=== PATIENT | female | born 1950 | race Caucasian/White ===

== ENCOUNTER → 2016-12-21 | Outpatient (CLI) | payer OTHER, MEDICARE | LOC: MOB LAB 14:34 | PROVIDERS: ATTEND Physician Assistant | DX: R59.1 Generalized enlarged lymph nodes (principal) | CPT/HCPCS: 87880; 99213; G0463 ==

== ENCOUNTER → 2016-12-24 | Outpatient (CLI) | payer OTHER, MEDICARE | LOC: MMPC 09:00 | PROVIDERS: ATTEND Physician Assistant Medical | DX: R59.1 Generalized enlarged lymph nodes (principal) | CPT/HCPCS: 99213; G0463 ==

== ENCOUNTER → 2016-12-28 | Outpatient (CLI) | payer OTHER, MEDICARE ==
[2016-12-28 12:46] LABS: BASOPHILS # (AUTO) 0.03 10*3/UL; BASOPHILS % (AUTO) 0.3 % (0-1); EOSINOPHILS # (AUTO) 0.16 10*3/UL; EOSINOPHILS % (AUTO) 1.5 % (0-8); HEMATOCRIT 42.4 % (37.0-47.0); HEMOGLOBIN 14.1 g/dL (12.0-16.0); LYMPHOCYTES # (AUTO) 2.46 10*3/uL; MEAN CORPUSCULAR HEMOGLOBIN 29.4 PG (27-31); MEAN CORPUSCULAR HGB CONC 33.3 g/dL (33-37); MEAN CORPUSCULAR VOLUME 88.5 FL (81-99); MEAN PLATELET VOLUME 10.5 FL (7.4-12.2); MONOCYTES # (AUTO) 0.71 10*3/UL (0.3-0.8); MONOCYTES % (AUTO) 6.8 % (5-15); NEUTROPHILS # (AUTO) 7.13 10*3/UL; NEUTROPHILS % (AUTO) 67.9 % (50-80); RED BLOOD COUNT 4.79 10^6/uL (4.20-5.40)
[2016-12-28 12:49] LABS: PLATELET MORPHOLOGY COMMENT NORMAL MORPHOLOGY (NORM); RBC MORPHOLOGY COMMENT NORMAL MORPHOLOGY (NORM); WBC MORPHOLOGY COMMENT NORMAL MORPHOLOGY (NORM)
--- NOTE | 2016-12-28 13:11 | DI ---
CT SCAN OF THE NECK WITHOUT IV CONTRAST, 12/28/2016 12:24 PM : Clinical History: Neck abscess. Previous Exam: None at this facility. Scans are obtained from the angle of Med to bridge of the nose without IV contrast. Sagittal and co samia images are generated. The cervical vertebral bodies are of normal height and size. There is disc space narrowing at C6-7 an d C7-T1. The right side of the neck is normal and no adenopathy is identified. On the left side, the inferior portion of the left parotid gland and the posterior belly of the digastric muscle show infla mmatory /infiltrative change. The posterior belly of the digastric muscle is probably 5-6 times alexandra l size. Without IV contrast, it is not possible to identify a definite abscess versus induration of t hat muscle. There is some inflammatory/infiltrative change associated with the sternocleidomastoid mu scle in proximity to the digastric muscle. The thyroid gland, the submandibular glands, and the parot id glands are normal. READIN. There is marked increase in size of the posterior belly of the digastric muscle on the left side with inflammatory/infiltrative change involving the inferomedial aspect of the left parotid gland and the contiguous portions of the sternocleidomastoid muscle. No pathologic adenopathy is present. Unfo rtunately, without IV contrast, it is not possible to definitely identify an abscess within the poste rior belly of the digastric muscle. 2. Followup either with a CT scan of the neck with IV contrast, or ultrasound of the neck is recomme nded to determine whether there is fluid in the posterior belly of the digastric muscle.
[2016-12-28 13:15] LABS: CALCIUM 9.9 mg/dL (8.7-10.7); SERUM ALBUMIN 4.4 g/dL (3.5-4.8)
== END ==
LOC: RAD 11:47 → MOB LAB 11:47
PROVIDERS: ATTEND Family Medicine
DX: L02.11 Cutaneous abscess of neck (principal)
CPT/HCPCS: 36415; 70490; 80053; 85025; 99213

== ENCOUNTER → 2017-01-25 | Outpatient (CLI) | payer OTHER, MEDICARE | LOC: MMPC 10:00 | PROVIDERS: ATTEND Podiatrist Foot & Ankle Surgery | DX: M79.675 Pain in left toe(s) (principal); L60.3 Nail dystrophy; M21.6X2 Other acquired deformities of left foot | CPT/HCPCS: 11755 ×2; 99202; G0463 ==

== ENCOUNTER → 2017-02-09 | Outpatient (CLI) | payer OTHER, MEDICARE | LOC: MMPC 10:00 | PROVIDERS: ATTEND Podiatrist Foot & Ankle Surgery | DX: M79.675 Pain in left toe(s) (principal); L60.3 Nail dystrophy | CPT/HCPCS: 99212; G0463 ==

== ENCOUNTER → 2017-04-12 | Outpatient (CLI) | payer OTHER, MEDICARE ==
[2017-04-12 08:06] LABS: CALCIUM 9.4 mg/dL (8.7-10.7); CHOL/HDL RATIO 4.17 RATIO (0-4.0); LDL CHOLESTEROL,CALCULATED 137.2 mg/dL; SERUM ALBUMIN 4.1 g/dL (3.5-4.8)
[2017-04-12 08:09] LABS: HEMOGLOBIN A1C 6.44 % (4.2-6.0)
[2017-04-12 08:35] LABS: FREE T4 (FREE THYROXINE) 1.26 ng/dL (0.93-1.71)
== END ==
LOC: LAB 07:30
PROVIDERS: ATTEND Family Medicine
DX: E03.9 Hypothyroidism, unspecified (principal); E78.5 Hyperlipidemia, unspecified; E88.81 Metabolic syndrome and other insulin resistance; I12.9 Hypertensive chronic kidney disease with stage 1 through stage 4 chronic kidney disease, or unspecified chronic kidney disease; N18.9 Chronic kidney disease, unspecified; Z83.3 Family history of diabetes mellitus
CPT/HCPCS: 36415; 80053; 80061; 82306; 83036; 84439; 84443

== ENCOUNTER 2018-07-10 05:47 | Inpatient (IN) ==
--- NOTE | 2018-06-21 09:01 | EKG ---
[address] [address] Measurements Intervals [place] Rate: 65 P: 39 IA: 157 QRS: -49 QRSD: 100 T: 49 QT: 349 QTc: 360 Interpretive Statements SINUS RHYTHM LEFT ANTERIOR FASCICULAR BLOCK [QRS AXIS <= -45, QR IN I, RS IN II] No previous ECG available for comparison Electronically Signed On 06-21-18 11:15:57 MDT by Jordan Cottrell [email or web address]
[2018-07-10] MEDS ORDERED: Lactated Ringers 1,000 ML PRIMARY IV ONE (05:57)
[2018-07-10] MEDS ORDERED: LIDOCAINE W/ SODIUM BICARB 0.5 ML SYR ONE (05:57)
[2018-07-10] MEDS ORDERED: Clindamycin 900mg (Premix) 900 MG/50 ML BAG IV ONE ×2 (05:57→06:00)
[2018-07-10] MEDS ORDERED: Lactated Ringers 1,000 ML PRIMARY IV SCH ×2 (06:00→10:30)
[2018-07-10] MEDS ORDERED: Nasal Sanitizer POPSWAB ampule 3 AMP (Nozin) PREOP DOSE ENOS SCH (06:00)
[2018-07-10] MEDS ORDERED: LIDOCAINE W/ SODIUM BICARB 0.5 ML SYR SUBD ONE (06:00)
[2018-07-10] MEDS ORDERED: KETAMINE 100 MG/1 ML - 5 ML ONE (06:46)
[2018-07-10] MEDS ORDERED: MIDAZOLAM 5 MG/1 ML ONE (06:46)
[2018-07-10] MEDS ORDERED: fentaNYL Inj 250 MCG/5 ML VIAL ONE (06:46)
[2018-07-10] MEDS ORDERED: Sodium Chloride 0.9% vial 20 ML ONE (06:48)
[2018-07-10] MEDS ORDERED: LIDOCAINE MPF 2% - 5 ML (20 MG/1 ML) ONE (06:48)
[2018-07-10] MEDS ORDERED: VECURONIUM BROMIDE 10 MG VIAL ONE (06:48)
[2018-07-10] MEDS ORDERED: PROPOFOL 10 MG/1 ML (200 MG/20 ML) VIAL IV ONE (06:49)
[2018-07-10 06:53] LABS: BILIRUBIN,URINE NEGATIVE (NEG); CLARITY,URINE CLEAR (CLEAR); COLOR,URINE YELLOW (Y); GLUCOSE, URINE (UA) NEGATIVE (NEG); OCCULT BLOOD,URINE Trace-intact (NEG); PROTEIN,URINE NEGATIVE (NEG); UROBILINOGEN,URINE 0.2 EU/dL (0.2)
[2018-07-10] MEDS ORDERED: BACITRACIN 50,000 UNIT VIAL IRRIG ONE (06:53)
[2018-07-10] MEDS ORDERED: Sodium Chloride 0.9% vial 40 ML ONE (06:53)
[2018-07-10] MEDS ORDERED: BUPivacaine Liposome/PF (Exparel) Inj 20ml vial INFIL ONE (06:54)
[2018-07-10 07:03] LABS: BACTERIA,URINE FEW; RBC,URINE 0 /hpf; SQUAMOUS EPITHELIAL CELL,UR MODERATE; URINE SAMPLE TYPE CLEAN CATCH URINE; WBC,URINE 0
[2018-07-10] MEDS ORDERED: Acetaminophen 1000mg Inj 1,000 MG/100 ML VIAL IV ONE (07:03)
[2018-07-10] MEDS ORDERED: BUPIVACAINE 0.5% W/EPI MPF -30 ML VIAL IV ONE (07:03)
[2018-07-10] MEDS ORDERED: DEXAMETHASONE PF 10 MG/1 ML VIAL ONE (07:03)
[2018-07-10] MEDS ORDERED: Ropivacaine 0.2% VIAL 20 ML ONE (07:03)
[2018-07-10] MEDS ORDERED: Ketorolac Inj 30 MG, Morphine Inj (Ortho Cocktail) 5 MG, BUPivacaine Inj 0.25% PF 150 MG SPLASH ONE ×3 (07:30)
[2018-07-10] MEDS ORDERED: TRANEXAMIC ACID 1,000 MG / 10 ML VIAL ONE (08:00)
--- NOTE | 2018-07-10 08:55 | CRNA.PROCE ---
Nerve Block Documentation - - Safety Measures: Time Out Taken, Site Verified - - Type of Nerve Block Used: Right Adductor Canal Nerve Block (Analgesia block for pain) Position for Nerve Block: Supine Moniters Used During Block: EKG, SPO2, NIBP Oxygen Supplemented: Yes Sedation Used - Enter Amount in Comment Field [ANES.SEDAT]: Midazolam (mg): Yes (2.5), Fentanyl (mcg): Yes (125) Draped: No Technique: Ultrasound Nerve Block Needle Used: EchoBright 100 mm Local Anesthetic - Enter Amt in Comment Field [ANES.LOCNB]: 0.5 % Bupivicaine with Epinephrine 1:200,000 (mL): Yes (20 ml), 0.2 % Ropivacaine (mL): Yes (12 ml ) Additives to Nerve Blocks: Dexamethasone (mg): Yes (10 ) - - PreOp Block : Time In: 07:13 PreOp Block : Time Out: 07:34 Anesthesia Time - Other Weight: 136.078 kg Height: 5 ft 7 in Body Mass Index (BMI): 47.0
--- NOTE | 2018-07-10 08:57 | CRNA.PROGR ---
Anesthesia Time - Procedure/Recovery Time Start Date: 07/10/18 End Date: 07/10/18 Anesthesia : Time In: 07:47 Anesthesia : Time Out: 10:45 Anesthesia : Total Time: 178 - Block Time Start Date: 07/10/18 End Date: 07/10/18 PreOp Block : Time In: 07:13 PreOp Block : Time Out: 07:34 PreOp Block : Total Time: 21 - Total Anesthesia Time Total Anesthesia Time (minutes): 199 - Other Weight: 136.078 kg Height: 5 ft 7 in Body Mass Index (BMI): 47.0 Physical Status: P2 Anesthesia Type: General Anesthesia : ET
[2018-07-10] MEDS ORDERED: fentaNYL Inj 100 MCG/2 ML VIAL IVP PRN (10:22)
[2018-07-10] MEDS ORDERED: HYDROmorphone 2 MG/1 ML IVP PRN (10:22)
[2018-07-10] MEDS ORDERED: LIDOCAINE W/ SODIUM BICARB 0.5 ML SYR SUBD PRN (10:22)
[2018-07-10] MEDS ORDERED: Prochlorperazine Edisylate Inj 10mg/2ml vial IVP PRN (10:22)
[2018-07-10] MEDS ORDERED: Ondansetron ODT Tab 8 MG TAB PO PRN (10:22)
[2018-07-10] MEDS ORDERED: ATROPINE SULFATE 0.4 MG/1 ML VIAL IVP PRN (10:22)
[2018-07-10] MEDS ORDERED: ONDANSETRON 4 MG/2 ML VIAL IVP PRN ×2 (10:22→11:31)
--- NOTE | 2018-07-10 10:37 | ORTHO.OP ---
Surgery Date: 07/10/18 Preoperative Diagnosis: Right knee OA Postoperative Diagnosis: same Procedure: Right TKA Surgeon: Carrington Hidalgo MD Messenger Floorperson: Ni Chowdhury PAMireille Anesthesia Provider: Delmy Hopson CRNA Anesthesia Type: General, Regional (adductor canal block) Estimated Blood Loss (mL): 300 Fluids: 1300 mL Pathology: n/a Findings: See Operative Note Indications: See Operative Note Complications: None
[2018-07-10 11:26] LABS: Hematocrit [HCT] 38.7 % (37.0-47.0); Hemoglobin [HGB] 12.8 g/dL (12.0-16.0)
[2018-07-10] MEDS ORDERED: MORPHINE SULFATE 2 MG/1 ML IVP PRN (11:31)
[2018-07-10] MEDS ORDERED: LIDOCAINE HCL 2 % 10 ML JELLY URO-JECT TOPICAL PRN (11:31)
--- NOTE | 2018-07-10 11:59 | CRNA.PROGR ---
Post Anesthesia Phase II - Post Anesthesia Phase II Patient Stable and Discharged To: Med/Surg Care Assumed By Surgeon: Carrington Hidalgo MD Temperature: 97.7 F Pulse Rate: 68 Respiratory Rate: 18 Blood Pressure: 110/62 Pulse Ox: 95 Total Ligia Score at Discharge: 9 Post Anesthesia Discharge Criteria Met: Yes
--- NOTE | 2018-07-10 11:59 | CRNA.PROGR ---
Anesthesia Recovery Phase I - Post Anesthesia Evaluation Patient's Condition on Arrival in Phase I: Stable Patient's Condition on Arrival in Phase II: Stable Pain Level: 0
[2018-07-10] MEDS ORDERED: MORPHINE SULFATE 10 MG/1 ML IV PRN (12:01)
[2018-07-10] MEDS ORDERED: MORPHINE SULFATE 4 MG/1 ML IV PRN (12:01)
[2018-07-10] MEDS ORDERED: MORPHINE SULFATE 2 MG/1 ML IV PRN (12:01)
[2018-07-10] MEDS: HYDROcodone-APAP 7.5 MG-325 MG TABLET PO PRN ×2 (12:16→20:41)
--- NOTE | 2018-07-10 12:19 | CONSULT ---
Consult Note - Consult Consult Date: 07/10/18 Reason for Consult: PostOp Consulation : Ortho Requesting Physician: Dr. Hidalgo Primary Care Provider: Juancho Alvarado MD - History of Present Illness History of Present Illness: This is a 67 years old female with medical history significant for history of of hypertension, hypothyroidism, GERD and osteoarthritis who came into the hospital to have right total knee replacement and was done by Dr. Hidalgo today. The hospitalist service were consulted for management of medical issues. She had she said some aches in her right knee but no severe pain. She did say that she had some nausea earlier but that's resolved. No shortness of breath, no chest pain. She did not take her medications today. Past Medical History Medical History: 1. Hypothyroidism. 2. GERD. 3. Hypertension. 4. Osteoarthritis. 5. Obesity Surgical History: 1. Status post hysterectomy. 2. Status post tonsillectomy. 3. Status post tubal ligation Family History: Reviewed an Not Pertinent Past Social History: Does not smoke does not drink no drugs. Tobacco Use: Never Smoker In the Past 12 Months, Have Used or Abuse Any of the Following Substance: None Alcohol Use: None Review of Systems - Review of Systems All Systems: Reviewed & No Additional Complaints Except as Stated Medication / Allergies Home Medications: Home Medications 3 Medication Instructions Recorded Confirmed Type Hydrocodone Bit/Acetaminophen 2 tab PO Q4-6H #60 tab 12/28/16 Clinic [[place] 5-325 Tablet] levothyroxine 75 mcg tablet 75 mcg PO QDAY #90 tab 05/30/18 07/10/18 Rx omeprazole 20 mg capsule,delayed 20 mg PO DAILY #90 cap 05/30/18 07/10/18 Rx release triamterene 37.5 1 cap PO QAM #90 cap 05/30/18 07/10/18 Rx mg-hydrochlorothiazide 25 mg capsule Hydrocodone/Acetaminophen 1 - 2 ea PO Q4-6H PRN #60 tab 07/10/18 Rx [Hydrocodon-Acetaminoph 7.5-325] Allergies/Adverse Reactions: Allergies 3 Allergy/AdvReac Type Severity Reaction Status Date / Time Penicillins Allergy Severe hives and Verified 07/10/18 06:17 swelling acromycin Allergy Severe hives Uncoded 07/10/18 06:17 Exam - Vitals Vital Signs: Vital Signs Temperature 97.7 F Pulse Rate 68 Respiratory Rate 18 Blood Pressure 110/62 Pulse Ox 95 Oxygen Flow Rate 2L NC Oxygen Delivery Method Nasal Cannula Height 5 ft 7 in Weight 300 lb - General General Appearance: No Acute Distress, Cooperative, Morbidly Obese - Head Head Exam: Normal Inspection - Eye Eye Exam: POSITIVE: Normal Appearance - ENT ENT Exam: POSITIVE: Normal Exam - Neck Neck Exam: Normal Inspection - Respiratory Respiratory Exam: POSITIVE: Clear to Auscultation - Bilaterally - Cardiovascular Cardiovascular Exam: POSITIVE: RRR - GI/Abdominal GI/Abdominal Exam: POSITIVE: Normal Bowel Sounds, Non Tender, Non Distended, Soft, No Organomegaly - Rectal Rectal Exam: POSITIVE: Deferred - External Exam: POSITIVE: Deferred - Extremities Additional Extremities Exam Details: SCD applied to the left leg. Dressing applied to the right leg. - Back Back Exam: POSITIVE: Normal Inspection - Neurological Neurological Exam: POSITIVE: Alert, Oriented x 3, CN II-XII Intact, No Facial Droop, Speech Intact / Clear - Psychiatric Psychiatric Exam: POSITIVE: Normal Affect Results - Labs CBC and BMP: 07/10/18 11:22 Assessment and Plan - Patient Problems (1) Status post right knee replacement Current Visit: Yes Status: Acute Comment: Dr. Hidalgo already wrote for pain medication, antiemetics. PT and OT were consulted. For DVT prophylaxis he put her on Lovenox. Code(s): Z96.651 - Presence of right artificial knee joint (2) GERD (gastroesophageal reflux disease) Current Visit: No Status: Acute Onset Date: 11/24/11 Comment: She has a history of GERD and requested her omeprazole will put her on it. Code(s): K21.9 - Gastro-esophageal reflux disease without esophagitis (3) Hypothyroid Current Visit: No Status: Chronic Comment: Resume tomorrow Code(s): E03.9 - Hypothyroidism, unspecified Qualifiers: Hypothyroidism type: unspecified Qualified Code(s): E03.9 - Hypothyroidism , unspecified (4) HTN (hypertension), benign Current Visit: No Status: Chronic Comment: We'll resume her medication tomorrow Code(s): I10 - Essential (primary) hypertension
[2018-07-10] MEDS: OMEPRAZOLE 20 MG CAPSULE PO SCH (12:41)
--- NOTE | 2018-07-10 13:03 | DI ---
RIGHT KNEE, 07/10/2018 10:38 AM: Clinical History: Status post total knee replacement. Osteoarthritis. Previous Exam: None at this facility. Comparison is made with an outside study from [place], [place] dated 06/07/2018. AP and lateral views are submitted. The patient is status post total right knee replacement. The pros thetic joint articulates normally. Reading: Status post total right knee replacement. The prosthetic joint articulates normally.
[2018-07-10] MEDS: Clindamycin 900mg (Premix) 900 MG/50 ML BAG IV SCH ×2 (14:14→20:42)
[2018-07-10] MEDS: DOCUSATE 100 MG CAPSULE PO SCH (20:41)
[2018-07-11] MEDS: HYDROcodone-APAP 7.5 MG-325 MG TABLET PO PRN ×4 (02:46→18:34)
[2018-07-11] MEDS: LEVOTHYROXINE 75 MCG TABLET PO SCH (04:47)
[2018-07-11 05:33] LABS: Hematocrit [HCT] 36.3 % (37.0-47.0); Hemoglobin [HGB] 11.8 g/dL (12.0-16.0); MEAN CORPUSCULAR HEMOGLOBIN 28.8 PG (27-31); MEAN CORPUSCULAR HGB CONC 32.5 g/dL (33-37); MEAN CORPUSCULAR VOLUME 88.5 FL (81-99); MEAN PLATELET VOLUME 11.1 FL (7.4-12.2); RED BLOOD COUNT 4.1 10^6/uL (4.20-5.40)
[2018-07-11] MEDS: TRIAMTERENE PO SCH (07:11)
[2018-07-11] MEDS: HCTZ PO SCH (07:11)
--- NOTE | 2018-07-11 08:13 | PDOC(PROG) ---
Date of Service: 07/11/18 Time of Service: 08:15 Interval History: Subjective Patient having some pain in her right knee her pain is 6 out of 10. She said she did walk to the bathroom last night. She just woke back to the bed. She is denying other symptoms. No nausea, no shortness of breath. Objective : Data - Labs CBC and BMP: 07/11/18 05:06 07/11/18 05:06 Objective : Exam - General General Appearance: No Acute Distress, Cooperative, Morbidly Obese - Head Head Exam: Normal Inspection - Eye Eye Exam: Normal Appearance - ENT ENT Exam: Normal Exam - Neck Neck Exam: Normal Inspection - Respiratory Respiratory Exam: Clear to Auscultation - Bilaterally - Cardiovascular Cardiovascular Exam: RRR - GI/Abdominal GI/Abdominal Exam: Normal Bowel Sounds, Non Tender, Non Distended, Soft, No Organomegaly - Rectal Rectal Exam: Deferred - External Exam: Deferred Exam: Deferred - Extremities Additional Extremities Exam Details: Dressing applied to the right knee. - Back Back Exam: Normal Inspection - Neurological Neurological Exam: Alert, Oriented x 3, CN II-XII Intact, No Facial Droop, Speech Intact / Clear - Psychiatric Psychiatric Exam: Normal Affect - Integumentary Integumentary Exam: Normal Color Assessment and Plan - Patient Problems (1) Status post right knee replacement Current Visit: Yes Status: Acute Comment: Continue PT and OT. For DVT prophylaxis she is on Lovenox. Same pain medication. Code(s): Z96.651 - Presence of right artificial knee joint (2) GERD (gastroesophageal reflux disease) Current Visit: No Status: Acute Onset Date: 11/24/11 Comment: Continue omeprazole Code(s): K21.9 - Gastro-esophageal reflux disease without esophagitis (3) Hypothyroid Current Visit: No Status: Chronic Comment: Same med Code(s): E03.9 - Hypothyroidism, unspecified Qualifiers: Hypothyroidism type: unspecified Qualified Code(s): E03.9 - Hypothyroidism , unspecified (4) HTN (hypertension), benign Current Visit: No Status: Chronic Comment: Same med Code(s): I10 - Essential (primary) hypertension
[2018-07-11] MEDS: ENOXAPARIN SODIUM 30 MG/0.3 ML SYRINGE SUBCUT SCH ×2 (08:14→20:11)
[2018-07-11] MEDS: OMEPRAZOLE 20 MG CAPSULE PO SCH (08:15)
[2018-07-11] MEDS: DOCUSATE 100 MG CAPSULE PO SCH ×2 (08:15→20:12)
[2018-07-11] MEDS ORDERED: Potassium Chloride Tab 10 MEQ TAB PO ONE (08:19)
[2018-07-11] MEDS ORDERED: HYDROCHLOROTHIAZID PO SCH (09:00)
[2018-07-11] MEDS ORDERED: TRIAMTERENE PO SCH (09:00)
--- NOTE | 2018-07-11 10:34 | ORTHO.PROG ---
Last Taken Vital Signs: Vital Signs - Last Taken Temperature 96.7 F L 07/11/18 09:00 Pulse Rate 64 07/11/18 09:00 Respiratory Rate 18 07/11/18 09:00 Blood Pressure 137/88 07/11/18 09:00 Pulse Ox 93 07/11/18 09:00 Subjective: Patient reports her pain is currently a 6/10, but is taking 1 tablet of hydrocodone which seems to be controlling her pain. She ambulated to the bathroom last night and this morning without difficulties. She denies any SOB, CP, F/C, or calf pain. Objective: CBC and BMP 07/11/18 05:06 07/11/18 05:06 On exam, patient is A&O x 3 and comfortably sitting in the bed. Dressing is clean/dry/intact. Negative calf tenderness. NV intact. Assessment: POD 1 from Right TKA overall stable labs and vitals and doing well Plan: * ambulate with walker WBAT * Continue lovenox for DVT ppx in hospital, then discharged home on ASA 81 mg 1 tablet daily and portable SCD pumps * Continue current pain medication * may be discharged once cleared by hospitalist, PT and OT * start outpatient PT on Monday * follow-up appointment already schedule for first PO appointment with orthopedics in 2 weeks * may remove dressing on POD 3 and shower as normal, no soaking the incision x 4 weeks
--- NOTE | 2018-07-11 10:54 | PTI REPORT ---
Thank you for the referral of Ani Phelan. She was seen on 07/10/18 for R Total Knee Replacement. SUBJECTIVE: Patient is a 67 year old female who underwent a R total knee replacement this morning. Patient states the she has 0 out of 10 pain of her right lower extremity and she states that most of her feeling has come back in right lower extremity. Upon our arrival she was on the CPM set from 0 to 90 per physicians protocol. Patient states that she lives in [place] with her she reports that they have a ramp to get into the stairs and everything is on one level and they always have an elevator down to their basement. Patient states that she was independent with ADL's prior to surgery and she was using a single point cane at times to get around the house and within the community secondary to her knee pain. PAST MEDICAL HISTORY: Past medical history can be found in the patient's medical record. OBJECTIVE FINDINGS: Patient was alert and oriented to setting upon PT arrival. Patient was on 2 liters of oxygen and did have a CPM in place on the right lower extremity. Patient's blood pressure was taken in the supine position 116/78 prior to sitting up the CPM was moved out of the way and she was able to perform a supine to seated transfer she required mid assist times 1 in order to help lower her right lower extremity once in a seated position patient denied any light headed or dizziness and demonstrated good seated balance her seated patient blood pressure was 127/82. Patient was then instructed on how to properly perform a sit to stand transfer using the walker. Patient was able to complete sit to stand transfer with contact guard assist times 1 for s afety. Once in a standing position she had fair standing balance with hand held assist times 2 on the walker. Patient's blood pressure in a standing position 125/106 she stated that she was fatigued after that activity and was able to perform a stand to seated transfer with verbal cueing and contact guard assist times 1 for safety. Patient did require mid assist times 1 in order to go from a seated to supine position back into bed to help lift her right lower extremity and then she did require verbal cueing for bed mobility in order to get centered within the bed. Once patient was back in bed the CPM was placed back on the patient with the parameters of 0 to 90 she was left in bed with the call light within reach and alarm set nursing staff was notified that the CPM was on in order to have that taken off in a couple of hours. ASSESSMENT: Patient has good rehab potential. Problem List Pain of the right knee Decrease range of motion of the right knee Decrease strength of the right knee Short-Term Goals: To be met by discharge from inpatient: Patient will be able to transfer from bed to stand safely and independently. Patient will be able to ambulate at least 150 feet with walker safely and independently. Patient will be able to ambulate up and down at least 5 stairs safely and independently in order to return back home. Long-Term Goals: To be met following discharge from inpatient: Patient will be seen by outpatient physical therapy for post op knee care. TREATMENT PLAN: Patient will be seen B.I.D during the week and one time per day over the weekend as an inpatient to address the above goals and objectives. INITIAL TREATMENT: Treatment today consisted of the initial evaluation and 1 unit of functional activity please see objective findings. MTDD
--- NOTE | 2018-07-11 15:25 | PT.PROG ---
Progress Note Progress Note: S. Patient stated that she is sore this morning, she agreed to get up to the chair. O. Patient transferred from supine to seated at the edge of bed then ambulated 5 feet to the chair where she was left with alarm and call light. A. Patient tolerated transfers and ambulation fair, she has pain in the back of her knee. Patient would continue to benefit from skilled therapy to increase strength and endurance. Patient requires mod assist with transfers and ambulation. P. Continue POC.
--- NOTE | 2018-07-11 15:43 | PT.PROG ---
Progress Note Progress Note: S. Patient stated that she is sore this afternoon. O. Patient ambulated 70 feet to the wheelchair and was wheeled to the therapy gym where she had heat and performed heel slides, quad sets, ankle pumps all x 15, seated knee flexion 3x30 seconds. Patient then performed sit to stands x 5 and then ambulated 50 feet to the wheelchair and was returned to her room where she was left in her chair with alarm and call light. A. Patient tolerated therapy fair, she continues to have pain in the back of her knee, and requires mod assist with transfers and ambulation. Patient would continue to benefit from skilled therapy to increase strength and endurance at this time. P. continue POC.
--- NOTE | 2018-07-11 16:30 | CRNA.PROGR ---
Anesthesia Note - Progress Notes Anesthesia Progress Note: Up in a chair. Cheerful. Block wore off about 2 this afternoon. Has been down to PT. Used the bathroom. One brief emesis post down to PT. Pain controlled with orals. Encouraged to be faithful re: PT.
[2018-07-12] MEDS: HYDROcodone-APAP 7.5 MG-325 MG TABLET PO PRN ×5 (01:17→21:06)
[2018-07-12] MEDS: LEVOTHYROXINE 75 MCG TABLET PO SCH (04:54)
[2018-07-12 04:56] LABS: Hematocrit [HCT] 34.4 % (37.0-47.0); Hemoglobin [HGB] 11.1 g/dL (12.0-16.0); MEAN CORPUSCULAR HGB CONC 32.3 g/dL (33-37); MEAN CORPUSCULAR VOLUME 89.8 FL (81-99); MEAN PLATELET VOLUME 11.1 FL (7.4-12.2); RED BLOOD COUNT 3.83 10^6/uL (4.20-5.40)
[2018-07-12 05:14] LABS: BUN/CREATININE RATIO 25.83 (6-20)
[2018-07-12] MEDS: HCTZ PO SCH (06:47)
[2018-07-12] MEDS: TRIAMTERENE PO SCH (06:47)
[2018-07-12] MEDS: DOCUSATE 100 MG CAPSULE PO SCH ×2 (08:54→21:06)
[2018-07-12] MEDS ORDERED: Potassium Chloride Tab 10 MEQ TAB PO ONE (08:54)
[2018-07-12] MEDS: OMEPRAZOLE 20 MG CAPSULE PO SCH (08:54)
[2018-07-12] MEDS: ENOXAPARIN SODIUM 30 MG/0.3 ML SYRINGE SUBCUT SCH ×2 (08:55→21:06)
--- NOTE | 2018-07-12 09:08 | OT.PROG ---
Progress Note Progress Note: S: pt stated that she was feeling better today that she was yesterday and agreed to therapy services. O: tx consisted of dressing and ADL tasks. pt washed faced and underarms with wash cloth independently. pt completed donning of underwear and pants with use of curing press operator independently. pt donned socks with sock aide with x2 VCs on use of sock aide and positioning. pt donned shoes independently with use of curing press operator. pt donned UE independently. pt completed STS x1 to complete donning of LE. pt was educated on proper positioning for success in standing from chair. pt demonstrated understanding of " noses over toes" technique. A: pt had minimal difficulties with dressing LE due to pain in her R knee from surgery. pt is still having difficulty lifting R LE off of floor making dressing mildly difficult. pt would benefit from continued skilled therapy to increase LE strength for ADL tasks. P: continue POC
--- NOTE | 2018-07-12 09:17 | PDOC(PROG) ---
Date of Service: 07/12/18 Time of Service: 09:15 Interval History: Subjective Pain seemed to be more controlled today compared to last night she said. Denying new symptoms. She is ready to work with physical therapy. Objective : Data - Labs CBC and BMP: 07/12/18 04:25 07/12/18 04:25 Objective : Exam - General General Appearance: No Acute Distress, Cooperative, Morbidly Obese - Head Head Exam: Normal Inspection - Eye Eye Exam: Normal Appearance - ENT ENT Exam: Normal Exam - Neck Neck Exam: Normal Inspection - Respiratory Respiratory Exam: Clear to Auscultation - Bilaterally - Cardiovascular Cardiovascular Exam: RRR - GI/Abdominal GI/Abdominal Exam: Normal Bowel Sounds, Non Tender, Non Distended, Soft, No Organomegaly - Rectal Rectal Exam: Deferred - External Exam: Deferred Exam: Deferred - Extremities Additional Extremities Exam Details: Dressing applied to the right knee. No edema in the left. - Neurological Neurological Exam: Alert, Oriented x 3, CN II-XII Intact, No Facial Droop, Speech Intact / Clear - Psychiatric Psychiatric Exam: Normal Affect - Integumentary Integumentary Exam: Normal Color Assessment and Plan - Patient Problems (1) Status post right knee replacement Current Visit: Yes Status: Acute Comment: Continue PT and OT. For DVT prophylaxis she is on Lovenox. Spoke with OT they think another day or 2 in the hospital. Code(s): Z96.651 - Presence of right artificial knee joint (2) GERD (gastroesophageal reflux disease) Current Visit: No Status: Acute Onset Date: 11/24/11 Comment: Same med Code(s): K21.9 - Gastro-esophageal reflux disease without esophagitis (3) Hypothyroid Current Visit: No Status: Chronic Comment: Same med Code(s): E03.9 - Hypothyroidism, unspecified Qualifiers: Hypothyroidism type: unspecified Qualified Code(s): E03.9 - Hypothyroidism , unspecified (4) HTN (hypertension), benign Current Visit: No Status: Chronic Comment: Blood pressure is acceptable. I think we'll hold the diuretic as her BUN is rising. We'll see what her blood pressure tomorrow. Potassium is low will give her replacement dose today. Code(s): I10 - Essential (primary) hypertension
--- NOTE | 2018-07-12 10:31 | OTI REPORT ---
Thank you for the referral of ZhaneAni Plaza. She was seen on 07/11/2018 for R Total Knee Replacement. SUBJECTIVE: Patient is a 67 year old female who is being secondary to having a R total knee replacement. Prior to admission she lives at home with her and was having increased difficulty with ADL's she does have a reach chair at home but is not the one to help with dressing. PAST MEDICAL HISTORY: Past medical history can be found in the patient's medical record. OBJECTIVE FINDINGS: Today we attempted dressing patient is only able to reach a little bit past her knee and is having a lot of pain in the back of calf which was reported to her nurse. After trying to dress without adaptive devices she was issued a senior medical technologist, sock aid, and a bath sponge for increased independence at home. She was able to use the senior medical technologist to doff socks independently with the sock aid she was able to don socks with mid assist and still needed mid assist with use of senior medical technologist for donning lower extremity dressing and demonstration of bath sponge was given. Today she needed max assist to come from supine to sit while edge of bed and also mod assist to come from sit to stand. Functional transfers are needing mid to mod assist for her balance. ASSESSMENT: Patient would benefit from skilled occupational therapy to address adaptive devices in improving her independence with dressing and ADL tasks. She would benefit from at least 1 to 2 more sessions she needs to improve with her bed mobility. Short-Term Goals: To be met by discharge from inpatient: Patient will be able to dress self with adaptive devices independently. Patient will be able to improve over all function abilities by standing times 5 minutes without loss of balance. Long-Term Goals: To be met following discharge from inpatient: Patient will be able discharged home demonstrating modified independence with all ADL's and functional transfers. TREATMENT PLAN: Patient will be seen B.I.D during the week and one time per day over the weekend as an inpatient to address the above goals and objectives. INITIAL TREATMENT: Initial treatment today consisted of evaluation followed by lower extremity dressing activities with adaptive devices and was issued a senior medical technologist, sock aid, and bath sponge. She does have a higher toilet as well as a shower chair in her walk in shower. [facility]
--- NOTE | 2018-07-12 11:24 | PT.PROG ---
Progress Note Progress Note: S. Patient stated that she is feeling better this morning. O. Patient ambulated 50 feet to the wheelchair and was wheeled to the therapy gym where she had heat to her knee then performed heel slides, quad sets, ankle pumps, short arc quads, hip abduction/adduction, seated long arc quads, and sit to stands all x 10. Patient then ambulated 80 feet to the wheelchair and was returned to her room where she was left with alarm and call light. A. Patient tolerated therapy well, she continues to struggle with balance and requires mod assist with bed mobility and Contact guard assist with transfers and ambulation. She would continue to benefit from 1-2 more days of skilled therapy to increase mobility and endurance at this time. P. Continue POC.
--- NOTE | 2018-07-12 16:24 | PT.PROG ---
Progress Note Progress Note: S. patient stated that she is feeling better this afternoon, however continues to have some soreness and stiffness. O. Patient ambulated 50 feet to the wheelchair and was wheeled to the therapy gym where she had heat to her knee then performed, heel slides, quad sets, ankle pumps, short arc quads, hip abduction/adduction sit to stands all x 10. Patient then ambulated 70 feet to the wheelchair and was returned to her room where she was left with alarm and call light. A. Patient tolerated therapy well, she continues to struggle with Range of motion and strength, however she is able to ambulate with contact guard assist. Patient would continue to benefit from 1-2 more days of skilled therapy to increase strength and mobility at this time. P. continue POC.
[2018-07-12 20:12] VITALS: RESP 20
[2018-07-13] MEDS: HYDROcodone-APAP 7.5 MG-325 MG TABLET PO PRN ×4 (00:13→13:09)
[2018-07-13] MEDS: LEVOTHYROXINE 75 MCG TABLET PO SCH (04:34)
[2018-07-13 04:57] LABS: Hematocrit [HCT] 37.3 % (37.0-47.0); Hemoglobin [HGB] 12.3 g/dL (12.0-16.0); MEAN CORPUSCULAR HEMOGLOBIN 29.4 PG (27-31); MEAN CORPUSCULAR VOLUME 89.2 FL (81-99); MEAN PLATELET VOLUME 11.5 FL (7.4-12.2); RED BLOOD COUNT 4.18 10^6/uL (4.20-5.40)
[2018-07-13 05:09] LABS: BUN/CREATININE RATIO 21.81 (6-20)
[2018-07-13] MEDS: ENOXAPARIN SODIUM 30 MG/0.3 ML SYRINGE SUBCUT SCH (08:17)
[2018-07-13] MEDS: OMEPRAZOLE 20 MG CAPSULE PO SCH (08:17)
[2018-07-13] MEDS: DOCUSATE 100 MG CAPSULE PO SCH (08:17)
--- NOTE | 2018-07-13 09:12 | PDOC(PROG) ---
Date of Service: 07/13/18 Time of Service: 09:15 Interval History: Subjective She said she had some stiffness the and her leg but otherwise the no other symptoms. No nausea or vomiting. She ate well today. Objective : Data - Labs CBC and BMP: 07/13/18 04:00 07/13/18 04:00 Objective : Exam - General General Appearance: No Acute Distress, Cooperative, Morbidly Obese - Head Head Exam: Normal Inspection - Eye Eye Exam: Normal Appearance - ENT ENT Exam: Normal Exam - Neck Neck Exam: Normal Inspection - Respiratory Respiratory Exam: Clear to Auscultation - Bilaterally - Cardiovascular Cardiovascular Exam: RRR - GI/Abdominal GI/Abdominal Exam: Normal Bowel Sounds, Non Tender, Non Distended, Soft, No Organomegaly - Rectal Rectal Exam: Deferred - External Exam: Deferred Exam: Deferred - Extremities Extremities Exam: Normal Inspection Additional Extremities Exam Details: Dressing applied to the right knee. - Neurological Neurological Exam: Alert, Oriented x 3, CN II-XII Intact, No Facial Droop, Speech Intact / Clear - Psychiatric Psychiatric Exam: Normal Affect - Integumentary Integumentary Exam: Normal Color Assessment and Plan - Patient Problems (1) Status post right knee replacement Status: Acute Comment: Continue PT and OT. Will talk to the PT and OT and see whether they will clear her today to be discharge likely in the afternoon. Code(s): Z96.651 - Presence of right artificial knee joint (2) GERD (gastroesophageal reflux disease) Status: Acute Onset Date: 11/24/11 Comment: Continue omeprazole Code(s): K21.9 - Gastro-esophageal reflux disease without esophagitis (3) Hypothyroid Status: Chronic Comment: Continue Synthroid Code(s): E03.9 - Hypothyroidism, unspecified Qualifiers: Hypothyroidism type: unspecified Qualified Code(s): E03.9 - Hypothyroidism , unspecified (4) HTN (hypertension), benign Status: Chronic Comment: Have held her diuretics today because of the rising BUN. Probably will restart tomorrow. Code(s): I10 - Essential (primary) hypertension
--- NOTE | 2018-07-13 09:48 | OT.PROG ---
Progress Note Progress Note: S: pt stated she was excited about getting to shower. O: pt completed ADL tasks of showering and dressing. pt completed body washing anterior and posterior independently. pt needed MIN A to completely dry back of legs due to feeling slightly unstable while standing. pt completed LE with use of credit collections analyst independently. pt needed MIN A to reposition socks. pt dressed UE independently. pt completed grooming tasks of hair combing and applying lotion independently. pt completed functional ambulation x10' with standard walker and CGA for safety. A: pt used grab bars in shower to stand to wash and dry perineum area. pt used credit collections analyst and sock aide independently. pt needs more practice with sock aide but overall is doing well. P: continue POC
--- NOTE | 2018-07-13 11:22 | PT.PROG ---
Progress Note Progress Note: S. Patient stated that she is feeling better she reports that she has some pain in the back of her knee. O. Patient was wheeled to the therapy gym where she had heat and performed, heel slides, quad sets, ankle pumps, short arc quads, sit to stands all x 10 seated knee flexion 3x45 second holds, patient then ambulated 80 feet to the wheel chair and was wheeled to her room where she was left in her chair and was instructed on how to use adaptive equipment ridged leg older adult social work specialist for safe transfers in and out of bed. and was left with alarm and call light. A. Patient continues to struggle with bed mobility and requires mod assist with transfer and mobility, she would continue to benefit from skilled therapy to increase strength and endurance. Patient has good support system at home however would benefit from one more treatment to ensure safety at this time. P. Continue POC.
[2018-07-13 14:49] VITALS: BP 148/68; TEMP 97.5; O2SAT 93
--- NOTE | 2018-07-13 15:01 | PT.PROG ---
Progress Note Progress Note: S. Patient stated that she is feeling good this afternoon. She stated she feels that she is ready to go home. O. Patient ambulated 50 feet to the wheel chair where she had heat and performed exercises in the form of; heel slides, quad sets, ankle pumps, short arc quads, hip abduction/adduction, seated long arc quads and sit to stands all x 10. Patient then ambulated 80 feet to the wheel chair and was returned to her room where she was left with nursing. A. Patient tolerated therapy well this afternoon, she was able to perform bed mobility with rigid leg drywall stripper helper, Patient was able to perform all activities with no increase in pain or problems. Patient has met all goals and would benefit from outpatient therapy at this time. P. Continue POC until discharge.
--- NOTE | 2018-07-13 15:08 | DCSUMMARY ---
Hospitalization Summary Admit Date: 07/10/2018 Discharge Date: 07/13/18 Hospital Course: Medical discharge summary Discharge diagnoses 1. Status post right knee replacement 2. History of hypertension 3. History of GERD 4. Hypokalemia 5. Obesity 6. History of osteoarthritis 7. History of hysterectomy Hospital course This is a 67 years old female with medical history significant for history of hypertension, hypothyroidism, GERD and osteoarthritis who came into the hospital to have right total knee replacement was done by Dr. Hidalgo. The hospitalist service were consulted for management of medical issues. Patient was seen postoperatively. There was no significant symptoms at that time. She started PT and OT continued previous medications. She did have a rise in her BUN so we've held her the diuretic once. She was hypokalemic and she received potassium and that was corrected. her postoperative course was uneventful . On the day of discharge she was cleared by the PT and OT and orthopedic so she was discharged home. Follow-up with. Dr. Hidalgo he discharged her only on aspirin for DVT prophylaxis. Laboratory Results 07/13/18 07/13/18 Range/Units 04:00 04:00 WBC 12.63 H (4.8-10.8) 10^3/uL RBC 4.18 L (4.20-5.40) 10^6/uL Hgb 12.3 (12.0-16.0) g/dL Hct 37.3 (37.0-47.0) % MCV 89.2 (81-99) FL MCH 29.4 (27-31) PG MCHC 33.0 (33-37) g/dL RDW Std Deviation 47.5 (39-50) fL RDW Coeff of Garcia 14.9 H (11.5-14.5) % Plt Count 315 (140-350) 10*3/uL MPV 11.5 (7.4-12.2) FL Sodium 138 (135-145) meq/L Potassium 3.7 L (3.8-5.2) meq/L Chloride 101 (98-112) meq/L Carbon Dioxide 26 (23-33) meq/L Anion Gap 11 (5-20) BUN 24 H (7-22) mg/dL Creatinine 1.1 (0.50-1.20) mg/dL Estimated GFR 49 (>60 ml/min/1.73m(2)) BUN/Creatinine Ratio 21.81 H (6-20) Glucose 132 H (78-110) mg/dL Calculated Osmolality 291.0 (267-292) mOsm/kg Calcium 9.0 (8.7-10.7) mg/dL Discharge instruction Diet regular Activity as started Medications Current Medication(s) 3 Medication Instructions Recorded Confirmed Type Hydrocodone Bit/Acetaminophen 2 tab PO Q4-6H #60 tab 12/28/16 Clinic [[place]ve[place] 5-325 Tablet] levothyroxine 75 mcg tablet 75 mcg PO QDAY #90 tab 05/30/18 07/10/18 Rx omeprazole 20 mg capsule,delayed 20 mg PO DAILY #90 cap 05/30/18 07/10/18 Rx release triamterene 37.5 1 cap PO QAM #90 cap 05/30/18 07/10/18 Rx mg-hydrochlorothiazide 25 mg capsule Hydrocodone/Acetaminophen 1 - 2 ea PO Q4-6H PRN #60 tab 07/10/18 Rx [Hydrocodon-Acetaminoph 7.5-325] Aspirin [Aspir 81] 81 mg PO DAILY #30 tablet. 07/13/18 Rx Follow-up with PCP 1-2 weeks Condition at discharge stable for discharge Exam - Vitals Vital Signs: Vital Signs Temperature 97.5 F Temperature Source Temporal Artery Scan Pulse Rate [Pulse Oximeter] 104 Pulse Rate 68 Respiratory Rate 20 Blood Pressure [Right Arm] 148/68 Blood Pressure [Left Arm] 142/92 Blood Pressure 110/62 Pulse Ox 93 Oxygen Flow Rate RA Oxygen Delivery Method Room Air Height 5 ft 7 in Weight 298 lb 6.4 oz Patient Problems - Patient Problem List (1) Status post right knee replacement Status: Acute Code(s): Z96.651 - Presence of right artificial knee joint Category: Medical (2) GERD (gastroesophageal reflux disease) Status: Acute Onset Date: 11/24/11 Code(s): K21.9 - Gastro-esophageal reflux disease without esophagitis Category: Medical (3) Hypothyroid Status: Chronic Code(s): E03.9 - Hypothyroidism, unspecified Qualifiers: Hypothyroidism type: unspecified Qualified Code(s): E03.9 - Hypothyroidism , unspecified Category: Medical (4) HTN (hypertension), benign Status: Chronic Code(s): I10 - Essential (primary) hypertension Category: Medical
[2018-07-13] MEDS ORDERED: HYDROcodone-APAP 7.5 MG-325 MG TABLET PO ONE (15:34)
[2018-07-14] MEDS ORDERED: Triamterene/HCTZ 75/50 Tab 1 TAB TAB PO SCH (07:00)
== END 2018-07-13 15:35 | disposition home or self-care (01) | DRG 470 ==
LOC: OPS 05:47 → MED/SURG 11:20
PROVIDERS: ADMIT Orthopaedic Surgery; ATTEND Orthopaedic Surgery

== ENCOUNTER 2018-11-27 07:53 | Inpatient (IN) ==
[~2018-11-27 07:53] MED LIST: Clindamycin 900mg (Premix) 900 MG/50 ML BAG IV ONE; LIDOCAINE W/ SODIUM BICARB 0.5 ML SYR ONE; LIDOCAINE W/ SODIUM BICARB 0.5 ML SYR SUBD ONE; Lactated Ringers 1,000 ML PRIMARY IV ONE; Nasal Sanitizer POPSWAB ampule 3 AMP (Nozin) PREOP DOSE ENOS SCH
[2018-11-27 08:15] LABS: BILIRUBIN,URINE NEGATIVE (NEG); CLARITY,URINE CLEAR (CLEAR); COLOR,URINE YELLOW (Y); GLUCOSE, URINE (UA) NEGATIVE (NEG); OCCULT BLOOD,URINE NEGATIVE (NEG); PH,URINE 6.5 (5.0-8.5); PROTEIN,URINE NEGATIVE (NEG); UROBILINOGEN,URINE 0.2 EU/dL (0.2)
[2018-11-27 08:17] LABS: URINE SAMPLE TYPE CLEAN CATCH URINE
[2018-11-27] MEDS: Lactated Ringers 1,000 ML PRIMARY IV SCH ×3 (08:30→15:59)
[2018-11-27] MEDS ORDERED: LIDOCAINE W/ SODIUM BICARB 0.5 ML SYR ONE (09:24)
[2018-11-27] MEDS ORDERED: LIDOCAINE 2%/ EPI 1:200,000 - 20 ML VIAL ONE (09:29)
[2018-11-27] MEDS ORDERED: BUPIVACAINE 0.5% W/ EPI - 10 ML VIAL ONE (09:30)
[2018-11-27] MEDS ORDERED: fentaNYL Inj 250 MCG/5 ML VIAL ONE (09:30)
[2018-11-27] MEDS ORDERED: MIDAZOLAM 5 MG/1 ML ONE (09:30)
[2018-11-27] MEDS ORDERED: Sodium Chloride 0.9% vial 40 ML ONE (09:45)
[2018-11-27] MEDS ORDERED: BUPivacaine Liposome/PF (Exparel) Inj 20ml vial INFIL ONE (09:45)
[2018-11-27] MEDS ORDERED: BACITRACIN 50,000 UNIT VIAL IRRIG ONE (09:45)
[2018-11-27] MEDS ORDERED: PROPOFOL 10 MG/1 ML (200 MG/20 ML) VIAL IV ONE (09:54)
--- NOTE | 2018-11-27 10:08 | CRNA.PROCE ---
Nerve Block Documentation - - Safety Measures: Time Out Taken, Site Verified - - Type of Nerve Block Used: Left Adductor Canal Nerve Block (For post op analgesia s/p L TKA) Moniters Used During Block: SPO2, NIBP Oxygen Supplemented: Yes Sedation Used - Enter Amount in Comment Field [ANES.SEDAT]: Midazolam (mg): Yes (2), Fentanyl (mcg): Yes (100) Skin Prep Used: ChloroPrep Technique: Ultrasound Nerve Block Needle Used: EchoBright 100 mm Local Anesthetic - Enter Amt in Comment Field [ANES.LOCNB]: 0.5 % Bupivicaine with Epinephrine 1:200,000 (mL): Yes (20), 2 % Xylocaine with Epinephrine 1:200,000 (mL): Yes (20) - - PreOp Block : Time In: 09:40 PreOp Block : Time Out: 09:50 Anesthesia Time - Other Weight: 129.727 kg Height: 5 ft 7 in Body Mass Index (BMI): 44.8
[2018-11-27] MEDS ORDERED: Ketorolac Inj 30 MG, Morphine Inj (Ortho Cocktail) 5 MG, BUPivacaine Inj 0.25% PF 150 MG SPLASH ONE ×3 (10:20)
[2018-11-27] MEDS ORDERED: TRANEXAMIC ACID 1,000 MG / 10 ML VIAL ONE (10:47)
[2018-11-27] MEDS ORDERED: ONDANSETRON 4 MG/2 ML VIAL ONE (10:54)
[2018-11-27] MEDS ORDERED: KETAMINE HCL 100 MG/2 ML SYRINGE IV ONE (11:04)
[2018-11-27] MEDS ORDERED: Lactated Ringers 1,000 ML PRIMARY IV ONE (11:46)
[2018-11-27 13:51] LABS: Hematocrit [HCT] 37.6 % (37.0-47.0); Hemoglobin [HGB] 12.6 g/dL (12.0-16.0)
--- NOTE | 2018-11-27 13:55 | ORTHO.OP ---
- - -: See Dictated Operative Report Surgery Date: 11/27/18 Preoperative Diagnosis: left knee OA Postoperative Diagnosis: left knee OA Procedure: Left TKA Surgeon: Carrington Hidalgo MD Physical Sciences Instructor: Ni Chowdhury PA-C (and Jennifer Mayo PA-C) Anesthesia Provider: Gold Mcnamara CRNA Anesthesia Type: General, Regional (adductor block) Estimated Blood Loss (mL): 75 Fluids: 1700mL Pathology: None Findings: See Operative Note Indications: See Operative Note Complications: None
--- NOTE | 2018-11-27 14:23 | DI ---
XR KNEE 1 OR 2 VWS,11/27/2018 1:24 PM: Clinical History: Left knee osteoarthritis. Previous Exam: July 10, 2018 Findings: AP and lateral views of the left knee are obtained, and demonstrate preserved joint spaces. There is some air in the subcutaneous spaces. There is no hardware loosening. The surrounding soft tissues are otherwise unremarkable. There is no fracture. Impression: Status post left total knee arthroplasty with recent postsurgical changes.
[2018-11-27] MEDS ORDERED: ONDANSETRON 4 MG/2 ML VIAL IVP PRN (14:41)
[2018-11-27] MEDS ORDERED: KETOROLAC 15 MG/1 ML VIAL IVP PRN (14:41)
[2018-11-27] MEDS ORDERED: LIDOCAINE HCL 2 % 10 ML JELLY URO-JECT TOPICAL PRN (14:41)
--- NOTE | 2018-11-27 17:23 | CONSULT ---
Consult Note - Consult Reason for Consult: PostOp Consulation : Ortho Primary Care Provider: Juancho Alvarado MD HPI - History of Present Illness History of Present Illness: This very nice 68-year-old female who was having a hard time getting around with arthritis in her left knee with pain and had an elective TKA hospitalist service was consulted for medical issues postop. Denies any chest pain nausea vomiting sitting in bed comfortably no pain Past Medical History Medical History: 1. Hypothyroidism. 2. GERD. 3. Hypertension. 4. Osteoarthritis. 5. Obesity Surgical History: 1. Status post hysterectomy. 2. Status post tonsillectomy. 3. Status post tubal ligation Family History: Reviewed an Not Pertinent Past Social History: Does not smoke does not drink no drugs. Tobacco Use: Never Smoker In the Past 12 Months, Have Used or Abuse Any of the Following Substance: None Review of Systems - Review of Systems All Systems: Reviewed & No Additional Complaints Except as Stated - Respiratory Respiratory: DENIES: Negative System Review, Cough, Sputum, Dyspnea At Rest, Dyspnea with Exertion, Pleuritic Pain, Hemoptysis, Wheezing, Other, See HPI - Cardiovascular Cardiovascular: DENIES: Negative System Review, Chest Pain, Edema, Syncope, Palpitations, Orthopnea, Paroxysmal Nocturnal Dyspnea, Other, See HPI - Gastrointestinal Gastrointestinal / Abdominal: DENIES: Negative System Review, Nausea, Vomiting, Diarrhea, Constipation, Abdominal Pain, Bloody Stool, Poor Appetite, Heartburn, Regurgitation, Bloating, Lactose Intolerance, Melena, Bright Red Blood per Rectum, Other, See HPI Medication / Allergies Home Medications: Home Medications Medication Instructions Recorded Confirmed Type Hydrocodone Bit/Acetaminophen 2 tab PO Q4-6H #60 tab 12/28/16 Clinic [Lawrence 5-325 Tablet] levothyroxine 75 mcg tablet 75 mcg PO QDAY #90 tab 05/30/18 11/26/18 Rx omeprazole 20 mg capsule,delayed 20 mg PO DAILY #90 cap 05/30/18 11/26/18 Rx release triamterene 37.5 1 cap PO QAM #90 cap 05/30/18 11/26/18 Rx mg-hydrochlorothiazide 25 mg capsule Aspirin [Aspir 81] 81 mg PO DAILY #30 tablet. 07/13/18 11/26/18 Rx Hydrocodone/Acetaminophen [[place] 1 - 2 ea PO Q4-6H PRN #60 tab 11/27/18 Rx 7.5-325 Tablet] Allergies/Adverse Reactions: Allergies Allergy/AdvReac Type Severity Reaction Status Date / Time Penicillins Allergy Severe hives and Verified 11/27/18 08:29 swelling acromycin Allergy Severe hives Uncoded 11/27/18 08:29 Exam - Vitals Vital Signs: Vital Signs Temperature 97.3 F Temperature Source Oral Pulse Rate [Pulse Oximeter] 62 Pulse Rate 76 Respiratory Rate 16 Blood Pressure [Left Arm] 107/91 Blood Pressure 123/66 Pulse Ox 96 Oxygen Flow Rate 0.5 Oxygen Delivery Method Nasal Cannula Height 5 ft 7 in Weight 286 lb - General General Appearance: No Acute Distress, Cooperative - Respiratory Respiratory Exam: POSITIVE: Clear to Auscultation - Bilaterally, Breathing Non Labored, Normal To Percussion, Normal to Percussion and Palpation - Cardiovascular Cardiovascular Exam: POSITIVE: RRR, No Murmur, No Clicks, No Gallops, No Rubs, PMI Non-Displaced - GI/Abdominal GI/Abdominal Exam: POSITIVE: Normal Bowel Sounds, Non Tender, Non Distended, Soft, No Masses, No Hepatomegaly, No Splenomegaly, No Organomegaly Results - Labs CBC and BMP: 11/27/18 13:46 Assessment and Plan - Patient Problems (1) GERD (gastroesophageal reflux disease) Current Visit: No Status: Acute Onset Date: 11/24/11 Code(s): K21.9 - Gastro-esophageal reflux disease without esophagitis (2) Hypothyroidism, unspecified Current Visit: No Status: Acute Onset Date: 11/24/11 Code(s): E03.9 - Hypothyroidism, unspecified (3) HTN (hypertension), benign Current Visit: No Status: Chronic Code(s): I10 - Essential (primary) hypertension - Assessment / Plan Additional Assessment/Plan Details: Present time patient's medical issues of hypertension and hypothyroidism and GERD were stable continue home meds we will address stenting as if comes up
[2018-11-27] MEDS: Clindamycin 900mg (Premix) 900 MG/50 ML BAG IV SCH ×2 (17:31→22:12)
[2018-11-27] MEDS: DOCUSATE 100 MG CAPSULE PO SCH (20:14)
[2018-11-27] MEDS: HYDROcodone-APAP 7.5 MG-325 MG TABLET PO PRN (23:50)
[2018-11-28] MEDS: Lactated Ringers 1,000 ML PRIMARY IV SCH (03:07)
[2018-11-28] MEDS: Clindamycin 900mg (Premix) 900 MG/50 ML BAG IV SCH (04:17)
[2018-11-28 04:42] LABS: Hematocrit [HCT] 33.2 % (37.0-47.0); Hemoglobin [HGB] 10.7 g/dL (12.0-16.0); MEAN CORPUSCULAR HEMOGLOBIN 28.8 PG (27-31); MEAN CORPUSCULAR HGB CONC 32.2 g/dL (33-37); MEAN CORPUSCULAR VOLUME 89.2 FL (81-99); MEAN PLATELET VOLUME 11.2 FL (7.4-12.2); RED BLOOD COUNT 3.72 10^6/uL (4.20-5.40)
[2018-11-28 06:18] LABS: BUN/CREATININE RATIO 25.83 (6-20)
--- NOTE | 2018-11-28 08:37 | ORTHO.PROG ---
Last Taken Vital Signs: Vital Signs - Last Taken Temperature 97.6 F 11/28/18 07:23 Pulse Rate 85 11/28/18 07:23 Respiratory Rate 16 11/28/18 07:23 Blood Pressure 95/55 11/28/18 07:23 Pulse Ox 96 11/28/18 07:23 Subjective: Patient reports she is doing well and slept ok through the night. She is in some pain this morning, but the last time she took a pain pill was last night around midnight. She is taking fluids well by mouth. Denies any CP, SOB, F/C, palpitations, or dizziness. Objective: Laboratory Results 11/27/18 11/27/18 11/28/18 08:35 13:46 04:15 WBC 9.64 RBC 3.72 L Hgb 12.6 10.7 L Hct 37.6 33.2 L MCV 89.2 MCH 28.8 MCHC 32.2 L RDW Std Deviation 50.0 RDW Coeff of Garcia 15.8 H Plt Count 266 MPV 11.2 Sodium Potassium Chloride Carbon Dioxide Anion Gap BUN Creatinine Estimated GFR BUN/Creatinine Ratio Glucose Calculated Osmolality Calcium Blood Type A POSITIVE Antibody Screen Negative 11/28/18 04:20 WBC RBC Hgb Hct MCV MCH MCHC RDW Std Deviation RDW Coeff of Garcia Plt Count MPV Sodium 136 Potassium 4.2 Chloride 102 Carbon Dioxide 24 Anion Gap 10 BUN 31 H Creatinine 1.2 Estimated GFR 44 BUN/Creatinine Ratio 25.83 H Glucose 157 H Calculated Osmolality 291.0 Calcium 8.3 L Blood Type Antibody Screen Radiographs of the left knee show s/p left TKA with well fixed and positioned components. On exam, patient is A&O x 3 and is not in any acute distress. The prevena dressing is c/d/i. Negative calf tenderness. NV intact. Assessment: Patient is POD 1 s/p Left routine TKA. Plan: * DVT ppx: continue lovenox 30mg SC BID and portable SCDs; transition to ASA 81mg 1 tablet daily upon discharge * Pain meds: continue hydrocodone * Continue CPM while in house, may d/c upon discharge * Cryocuff ice to knee * abx ppx: Continue clinda 900mg x 3 total doses * WBAT with walker * continue PT per TKA protocol * Wound care: Prevena dressing in place, leave on until first PO appointment * May discontinue IV fluid once taking PO well * May be discharged home once cleared by hospitalist and PT * Follow-up with Ortho as scheduled in 1 week
[2018-11-28] MEDS: ENOXAPARIN SODIUM 30 MG/0.3 ML SYRINGE SUBCUT SCH ×2 (09:11→20:20)
[2018-11-28] MEDS: HYDROcodone-APAP 7.5 MG-325 MG TABLET PO PRN ×3 (09:11→19:18)
[2018-11-28] MEDS: DOCUSATE 100 MG CAPSULE PO SCH ×2 (09:11→20:20)
--- NOTE | 2018-11-28 09:23 | PTI REPORT ---
Thank you for the referral of Ani Phelan. She was seen on 11/27/18 for an inpatient evaluation status post left total knee replacement. SUBJECTIVE: The patient is a 68-year-old female who underwent a left total knee replacement earlier today. The patient states that she is doing well this afternoon. She does have a CPM placed on the left side set at 0 to 90 at this time. She is reporting 0/10 pain. The patient did undergo a right total knee replacement on July 09, 2018 and states she has been doing well since then but has been using a single point cane at times to ambulate due to her left knee giving out. She reports that prior to her surgery she was independent with all ADLs and reports no falls since her last surgery. The patient states that she lives here in [place] with her . They do have some stairs in the home but the patient states that she does not use the stairs regularly. The patient is looking forward to getting up and moving. PAST MEDICAL HISTORY: Past medical history can be found in the patient's medical record. OBJECTIVE FINDINGS: General observations: The patient was alert and oriented to setting upon PT arrival. The patient was on one liter of oxygen with her oxygen saturation at 98%. She did have an IV in place and also a CPM on the left and a Provera dressing over the incision on the left side. The CPM was removed. The patient's blood pressure was a little bit lower per nursing's report at 98/71. We did wait 15 minutes before sitting the patient up as nursing did give her an IV for fluids to help raise her blood pressure. Before we sat up her blood pressure was 106/69. Bed mobility: The patient was able to move from supine to seated edge of bed position with minimal assistance to help lower her left lower extremity. Once sitting, the patient denied any lightheadedness or dizziness. We did sit for approximately 5 minutes just to make sure that the patient had no symptoms. Nursing at that time had brought the patient's oxygen down to 1/2 a liter. The patient did well but did need minimal cueing at times to remember to breathe as her oxygen would drop down to 85% when she wasn't paying attention and we weren't cueing for that. With the cues she was able to bring it to 96%. After sitting up for a little bit the patient stated that she would like to try to ambulate to the bathroom as she did not have a [place] in place. The patient did have her walker from her previous surgery so we did utilize that and placed a gait belt around the patient. Transfers: The patient was able to perform a sit to stand transfer with the bed elevated. The patient demonstrated fair initial standing balance with hand hold assist x2 on the walker. We did stand for a minute in order for the patient to get her bearings. She denied any lightheadedness or dizziness with standing. After standing for a minute the patient stated she was ready to ambulate. Ambulation: The patient ambulated with weight-bearing as tolerated on the left side and contact guard assist x1 for safety to the bathroom. She did have a couple of times where she needed more of min assist to maintain her balance on the way to the bathroom and for proper walker placement. Once in the bathroom the patient was able to perform a stand to seated transfer onto the toilet. The patient required contact guard assist x1 for safety while performing toileting hygiene and for ambulating back toward her bed. The patient was able to transfer back into bed with stand by assist x1 for safety and was able to lift up her left lower extremity to get it up into bed. ASSESSMENT: The patient has good rehab potential. Problem List: Pain in the left knee Decreased range of motion of the left knee Weakness Short-Term Goals: To be met by discharge from inpatient: Patient will be able to transfer from bed to stand safely and independently. Patient will be able to ambulate at least 150 feet with walker and weight- bearing as tolerated on the left safely and independently. Patient will be able to ascend and descend at least five stairs with walker safely and independently. Long-Term Goals: To be met following discharge from inpatient: Patient will be seen by outpatient physical therapy for post op total knee care. TREATMENT PLAN: Patient will be seen B.I.D during the week and one time per day over the weekend as an inpatient to address the above goals and objectives. INITIAL TREATMENT: Treatment today consisted of the initial evaluation followed by two units of functional activity. Following treatment the patient was left in bed with call light within reach and bed alarm set. The CPM was not placed back on as the patient was going to eat her supper. The therapist did discuss with nursing staff about putting the CPM on as soon as the patient was done eating supper. NEGIN
--- NOTE | 2018-11-28 11:16 | PT.PROG ---
Progress Note Progress Note: S. patient stated that her knee is sore this morning, however agreed to walk. O. Patient ambulated 15 feet to the restroom then stood at the sink x 3 minutes and ambulated 15 feet back to the bed where she was left at the edge of bed with alarm and call light. A. Patient tolerated ambulation and standing well, she was struggling with pain in the back of her knee however was able to ambulate with contact guard assist. Patient would continue to benefit from skilled therapy to increase strength, endurance and mobility at this time. P. continue POC.
--- NOTE | 2018-11-28 15:44 | PDOC(PROG) ---
Date of Service: 11/28/18 Time of Service: 15:40 Interval History: Patient seen and evaluated earlier today. No chest pain, shortness breath, nausea or vomiting. She states she's noted some lower blood pressures but does not have symptoms. Objective : Data - Labs CBC and BMP: 11/28/18 04:15 11/28/18 04:20 Objective : Exam - General General Appearance: No Acute Distress, Cooperative Additional General Exam Details: Vital Signs - Last Taken Temperature 97 F 11/28/18 13:00 Pulse Rate 83 11/28/18 13:00 Respiratory Rate 17 11/28/18 13:00 Blood Pressure 105/42 11/28/18 13:00 Pulse Ox 93 11/28/18 13:00 - Eye Eye Exam: No Scleral Icterus - ENT ENT Exam: Mucous Membranes Moist - Neck Neck Exam: JVP is not Raised - Respiratory Respiratory Exam: Clear to Auscultation - Bilaterally, Breathing Non Labored - Cardiovascular Cardiovascular Exam: RRR, No Murmur, No Clicks, No Gallops, No Rubs, No JVD - GI/Abdominal GI/Abdominal Exam: Normal Bowel Sounds, Non Tender, Non Distended, Soft - Extremities Extremities Exam: No Clubbing Present, No Edema Present, No Cyanosis Present Additional Extremities Exam Details: Left knee has a dressing in place, dressing is clean, dry, intact - Neurological Neurological Exam: Alert, Oriented x 3, No Facial Droop, Speech Intact / Clear Additional Neurological Exam Details: I watched the patient ambulate in the hallway with physical therapy. She did very well with a walker Assessment and Plan - Patient Problems (1) HTN (hypertension), benign Current Visit: Yes Status: Chronic Code(s): I10 - Essential (primary) hypertension (2) GERD (gastroesophageal reflux disease) Current Visit: Yes Status: Acute Onset Date: 11/24/11 Code(s): K21.9 - Gastro-esophageal reflux disease without esophagitis Qualifiers: Esophagitis presence: esophagitis presence not specified Qualified Code(s): K21.9 - Gastro-esophageal reflux disease without esophagitis (3) Hypothyroidism, unspecified Current Visit: Yes Status: Chronic Onset Date: 11/24/11 Code(s): E03.9 - Hypothyroidism, unspecified Qualifiers: Hypothyroidism type: unspecified Qualified Code(s): E03.9 - Hypothyroidism, unspecified (4) Morbid obesity Current Visit: Yes Status: Acute Code(s): E66.01 - Morbid (severe) obesity due to excess calories (5) Status post left knee replacement Current Visit: Yes Status: Acute Code(s): Z96.652 - Presence of left artificial knee joint - Assessment / Plan Additional Assessment/Plan Details: DVT prophylaxis as per orthopedics. I would recommend 10-14 days postoperative from a knee replacement. Pain management as per orthopedics. Blood pressures have been low, but patient asymptomatic and I will hold off on diuretic therapy for now. Blood okay in terms of hemoglobin and hematocrit and no need for blood transfusion. Labs in a.m. From hospitalist side can discharge whenever orthopedics feels appropriate. I would recommend seven-day follow-up with her primary care physician. This can be to recheck blood pressure, thyroid function, and other medical issues.
--- NOTE | 2018-11-28 16:26 | PT.PROG ---
Progress Note Progress Note: S. Patient stated that she is stiff and sore this afternoon however agreed to go to the therapy gym. O. Patient ambulated 50 feet to the wheelchair and was wheeled to the therapy gym where she had heat and micro massage to their knee to decrease pain and edema. Patient then performed exercises in the form of; heel slides, quad sets, glute sets, ankle pumps, , hip abduction/adduction, seated long arc quads, heel toe raises, all x 10 bilaterally, Patient then performed sit to stands x 10, then ambulated 80 feet to the wheelchair and was wheeled back to her room and was left with call light and alarm. A. Patient tolerated therapy fair, she struggled with flexion exercises in supine, Patient continues to require mod assist with transfers and ambulation, she would continue to benefit from skilled therapy to increase strength, mobility, and safety at this time. P. Continue POC.
[2018-11-28] MEDS ORDERED: CALCIUM CARBONATE 500 MG (TUMS) CHEWABLE TABLET PO PRN (18:22)
[2018-11-29] MEDS: HYDROcodone-APAP 7.5 MG-325 MG TABLET PO PRN ×5 (00:44→20:40)
[2018-11-29] MEDS: LEVOTHYROXINE 75 MCG TABLET PO SCH (04:46)
[2018-11-29 05:50] LABS: Hematocrit [HCT] 32.1 % (37.0-47.0); Hemoglobin [HGB] 10.6 g/dL (12.0-16.0); MEAN CORPUSCULAR HEMOGLOBIN 29.3 PG (27-31); MEAN CORPUSCULAR VOLUME 88.7 FL (81-99); RED BLOOD COUNT 3.62 10^6/uL (4.20-5.40)
[2018-11-29 06:16] LABS: BUN/CREATININE RATIO 26.66 (6-20)
[2018-11-29] MEDS: OMEPRAZOLE 20 MG CAPSULE PO SCH (07:20)
[2018-11-29] MEDS: ENOXAPARIN SODIUM 30 MG/0.3 ML SYRINGE SUBCUT SCH ×2 (08:40→20:40)
[2018-11-29] MEDS: ASPIRIN EC 81 MG TABLET PO SCH (08:41)
[2018-11-29] MEDS: DOCUSATE 100 MG CAPSULE PO SCH ×2 (08:41→20:40)
--- NOTE | 2018-11-29 09:14 | ORTHO.PROG ---
Last Taken Vital Signs: Vital Signs - Last Taken Temperature 97.1 F 11/29/18 07:36 Pulse Rate 85 11/29/18 07:36 Respiratory Rate 16 11/29/18 04:50 Blood Pressure 133/71 11/29/18 04:50 Pulse Ox 92 11/29/18 07:36 Subjective: Patient reports she is in more pain today. She reports pain in the knee as well as pain in the calf muscle. She ambulated with PT yesterday. Denies any CP, SOB, F/C, dizziness. She is taking PO well. Objective: Laboratory Results 11/29/18 11/29/18 05:30 05:30 WBC 9.29 RBC 3.62 L Hgb 10.6 L Hct 32.1 L MCV 88.7 MCH 29.3 MCHC 33.0 RDW Std Deviation 49.5 RDW Coeff of Garcia 15.6 H Plt Count 255 MPV 11.0 Sodium 135 Potassium 3.9 Chloride 103 Carbon Dioxide 27 Anion Gap 5 BUN 32 H Creatinine 1.2 Estimated GFR 44 BUN/Creatinine Ratio 26.66 H Glucose 122 H Calculated Osmolality 287.0 Calcium 8.4 L On exam, patient is A&O x 3 and not in any acute distress. The Prevena dressing is c/d/i. There is ttp in the calf muscle with swelling. AROM of the ankle without difficulties. 2+ DP pulse. Cap refill < 2 seconds. Assessment: POD 2 s/p left TKA with increased pain today in the calf muscle. Plan: * Left lower extremity venous US to r/o DVT * DVT ppx: continue lovenox in hospital, discharge home with ASA 81 mg daily and portable SCDs * continue hydrocodone for pain * PT continue per TKA protocol * WBAT with walker * Wound care: keep Prevena dressing on until first PO appointment * Discharge home once cleared by hospitalist and PT; may go home today from an ortho perspective * follow-up in 1 week as scheduled with ortho
--- NOTE | 2018-11-29 10:18 | OTI REPORT ---
Thank you for the referral of Ani Phelan. She was seen on 11/28/18 for an occupational therapy inpatient evaluation status post left total knee arthroplasty. SUBJECTIVE: The patient is a 68-year-old female. The patient reports that she had her right knee replaced in June of 2017. Prior to admission the patient was independent with most ADLs. She has higher furniture at her house. She is sore in her left lower extremity and having a difficult time extending her leg. PAST MEDICAL HISTORY: Past medical history can be found in the patient's medical record. OBJECTIVE FINDINGS: Bed mobility: The patient requires max assist to transfer from supine to sit. The patient is really struggling with moving her left leg and it does increase her pain. Strength/Range of motion: The patient has within functional limits for upper extremity strength and range of motion, but is having difficulty pushing off of surfaces in order to come from sit to stand. Strength is 3+/5 throughout. Activities of daily living: While sitting edge of bed we went over dressing activities. The patient was issued a chemical lab supervisor and a shoe horn. She reported she needed a new chemical lab supervisor as her other one has worn out. The patient did not get a shoe horn last time and she definitely needed one when she went home. The patient used the chemical lab supervisor to dress lower extremities with mod assist. She has difficulty bending the left lower extremity and had increased pain. She is using a leg test case developer to get the leg out of bed as that is what she did last time. Transfers: The patient is slightly obese and may have difficulty moving in and out of bed and transferring from sit to stand. The patient requires max assist to transfer from sit to stand and needed the bed heightened to a pretty high height in order to come from sit to stand. Ambulation: The patient was able to ambulate to the bathroom with min assist and verbal cues. She is taking very short steps at this time and she is in pain as she is grimacing and reports increased pain at a 7/10 on the verbal analog scale (0=on pain, 10=worst pain). ASSESSMENT: Problem List: Decreased activity tolerance Decreased ability to complete ADLs Decreased ability to complete functional transfers Short-Term Goals: To be met by discharge from inpatient: Patient will be able to dress self with modified independence using adaptive devices. Patient will be able to complete a bed transfer independently and safely. Patient will be able to complete sit to stands and toilet transfers with stand by assistance. Patient will increase upper extremity strength to 4+/5 to complete sit to stands independently. Long-Term Goals: To be met following discharge from inpatient: Patient will be discharged to home, demonstrating independence with all ADLs and functional transfers. TREATMENT PLAN: Patient will be seen B.I.D during the week and one time per day over the weekend as an inpatient to address the above goals and objectives. INITIAL TREATMENT: Treatment today consisted of the initial evaluation followed by bed mobility, transfers, and dressing with adaptive devices. NEGIN
--- NOTE | 2018-11-29 11:20 | PT.PROG ---
Progress Note Progress Note: S. Patient agreed to go to the therapy gym. She did mention a sharp pain in her calf. O. Patient ambulated 15 feet to the wheelchair and was wheeled to the therapy gym where she had heat x 5 minutes, then performed heel slides, quad sets, ankle pumps all x 10. Patient was taken to [facility] and left with Radiology staff. A. Patient continues to struggle with pain and requires mod assist with transfers. She would continue to benefit from skilled therapy to increase mobility and strength at this time. P. continue POC.
--- NOTE | 2018-11-29 15:52 | OT AM DAY ---
Diagnosis : Left Total Knee Arthroplasty AM - Occupational Therapy S: The patient reports her left knee is hurting quite a bit. She rates her pain as a 7/10 on the verbal analog scale (0=no pain, 10=worst pain). O: The patient was in the bathroom upon the therapist's arrival. She required max assist with wiping her bottom. The patient was issued toilet tongs and instructed in their use. The patient is going to practice with these from now on. The patient was able to complete a sit to stand transfer off of the toilet with mod assist. The patient stood at the sink x3 minutes to complete hygiene activities. She then transferred back to the chair. Once in chair we worked on doffing socks with deck molder which the patient was able to do independently. A: The patient is struggling with her left leg. To get her legs up into the chair was very difficult; she required a two person assist, one to move the lever and one to help lift legs. She is having difficulty with her transfers. It is recommended that she stays so that she can work on her bed mobility and ambulation to and from toilet/chair, etc. P: Continue seeing patient BID during the week and one time per day over the weekend for upper extremity strengthening, ADLs, and overall functional mobility. NEGIN
--- NOTE | 2018-11-29 16:23 | PT.PROG ---
Progress Note Progress Note: Nursing suggested hold this afternoon due to lack of ultrasound test results. Placed patient on CPM.
--- NOTE | 2018-11-29 20:06 | PDOC(PROG) ---
Date of Service: 11/29/18 Time of Service: 20:03 Interval History: patient seen, evaluated earlier no chest pain, no shortness of breath making gains with therapy, but still a little unsteady lying down to standing and that is concerning to patient and her . they have a good set up at home and good assist devices. PT and OT DVT prophylaxis, I would recommend 14 days total post op, but as per ORtho needs a bit more therapy, but probably okay to go home tomorrow from hospitalist perspective, with no changes to medical problem management out of the hospital. Objective : Data - Labs CBC and BMP: 11/29/18 05:30 11/29/18 05:30 Assessment and Plan - Patient Problems (1) HTN (hypertension), benign Current Visit: Yes Status: Chronic Code(s): I10 - Essential (primary) hypertension (2) GERD (gastroesophageal reflux disease) Current Visit: Yes Status: Acute Onset Date: 11/24/11 Code(s): K21.9 - Gastro-esophageal reflux disease without esophagitis Qualifiers: Esophagitis presence: esophagitis presence not specified Qualified Code(s): K21.9 - Gastro-esophageal reflux disease without esophagitis (3) Hypothyroidism, unspecified Current Visit: Yes Status: Chronic Onset Date: 11/24/11 Code(s): E03.9 - Hypothyroidism, unspecified Qualifiers: Hypothyroidism type: unspecified Qualified Code(s): E03.9 - Hypothyroidism, unspecified (4) Morbid obesity Current Visit: Yes Status: Acute Code(s): E66.01 - Morbid (severe) obesity due to excess calories (5) Status post left knee replacement Current Visit: Yes Status: Acute Code(s): Z96.652 - Presence of left artificial knee joint
--- NOTE | 2018-11-29 22:29 | DI ---
US Veins, UE/LE [employer],11/29/2018 10:30 AM: Clinical History: Left calf pain and swelling. Previous Exam: October 29, 2018 Findings: Multiple grayscale and color Doppler sonographic images are obtained through the deep veins of the le ft lower cavity, and demonstrate complete coaptation upon graded compression throughout. The vessels distal to the calf were not well interrogated. There is normal respiratory variation and augmentation. Impression: No evidence of deep venous thrombosis.
[2018-11-30] MEDS: HYDROcodone-APAP 7.5 MG-325 MG TABLET PO PRN ×3 (03:52→12:04)
[2018-11-30] MEDS: LEVOTHYROXINE 75 MCG TABLET PO SCH (04:37)
[2018-11-30 05:01] LABS: Hematocrit [HCT] 31.6 % (37.0-47.0); Hemoglobin [HGB] 10.4 g/dL (12.0-16.0); MEAN CORPUSCULAR HEMOGLOBIN 29.1 PG (27-31); MEAN CORPUSCULAR HGB CONC 32.9 g/dL (33-37); MEAN CORPUSCULAR VOLUME 88.5 FL (81-99); MEAN PLATELET VOLUME 11.3 FL (7.4-12.2); RED BLOOD COUNT 3.57 10^6/uL (4.20-5.40)
[2018-11-30] MEDS: OMEPRAZOLE 20 MG CAPSULE PO SCH (06:58)
[2018-11-30 07:16] VITALS: RESP 18
[2018-11-30 07:17] VITALS: BP 108/69; TEMP 97.5; O2SAT 91
[2018-11-30] MEDS: ASPIRIN EC 81 MG TABLET PO SCH (08:24)
[2018-11-30] MEDS: ENOXAPARIN SODIUM 30 MG/0.3 ML SYRINGE SUBCUT SCH (08:24)
[2018-11-30] MEDS: DOCUSATE 100 MG CAPSULE PO SCH (08:24)
[2018-11-30] MEDS ORDERED: Triamterene/HCTZ 75/50 Tab 1 TAB TAB PO SCH (09:00)
--- NOTE | 2018-11-30 09:17 | ORTHO.DC ---
Discharge Summary Admit Date: 11/27/18 Discharge Date: 11/30/18 Admitting Diagnosis: R knee OA Seconadry Diagnosis: multiple medical problems Discharge Diagnosis: Left knee OA Primary Surgery and Date: L TKA 11/27/2018 Hospital Course: Hospitalist consulted for medical care. Routine post op course. 90% on Room air Discharge Medications: Discharge Medications Hydrocodone Bit/Acetaminophen [[place] 5-325 Tablet] 2 tab PO Q4-6H #60 tab 12/28/16 [Clinic] levothyroxine 75 mcg tablet 75 mcg PO QDAY #90 tab 05/30/18 [Rx] omeprazole 20 mg capsule,delayed release 20 mg PO DAILY #90 cap 05/30/18 [Rx] triamterene 37.5 mg-hydrochlorothiazide 25 mg capsule 1 cap PO QAM #90 cap 05/30/18 [Rx] Aspirin [Aspir 81] 81 mg PO DAILY #30 tablet. 07/13/18 [Rx] Hydrocodone/Acetaminophen [[place] 7.5-325 Tablet] 1 - 2 ea PO Q4-6H PRN #60 tab 11/27/18 [Rx] Acetaminophen [Tylenol] 2 tab PO WEEKLY 11/29/18 [History] Follow-Up: Carrington Hidalgo [STAFF PHYSICIAN] - 12/03/18 11:00 am (in [place] with [place]) JOSUE FARIAS [Primary Care Provider] - As Needed Exam - Vitals Vital Signs: Vital Signs Temperature 97.5 F Temperature Source Temporal Artery Scan Pulse Rate [Pulse Oximeter] 82 Pulse Rate 76 Respiratory Rate 18 Blood Pressure [Right Arm] 108/69 Blood Pressure [Left Arm] 122/67 Blood Pressure 123/66 Pulse Ox 91 Oxygen Flow Rate 1 Oxygen Delivery Method Room Air Height 5 ft 7 in Weight 1.356 kg
--- NOTE | 2018-11-30 09:31 | ORTHO.PROG ---
Progress Note -: Vital Signs - Last Taken Temperature 97.5 F 11/30/18 07:08 Pulse Rate 82 11/30/18 07:08 Respiratory Rate 18 11/30/18 07:13 Blood Pressure 108/69 11/30/18 07:08 Pulse Ox 91 11/30/18 07:08 Laboratory Results 11/30/18 11/30/18 04:50 04:50 WBC 9.37 RBC 3.57 L Hgb 10.4 L Hct 31.6 L MCV 88.5 MCH 29.1 MCHC 32.9 L RDW Std Deviation 48.8 RDW Coeff of Garcia 15.6 H Plt Count 256 MPV 11.3 Sodium 136 Potassium 3.9 Chloride 103 Carbon Dioxide 26 Anion Gap 7 BUN 22 Creatinine 1.1 Estimated GFR 49 BUN/Creatinine Ratio 20.00 Glucose 124 H Calculated Osmolality 285.0 Calcium 8.4 L Subjective: - Postop Day [3] pain controlled. no CP or SOB or Calf pain. Objective: - Taking PO pain medication - Tolerating regular diet - No Sar[place]ia - voiding without difficulty - Ambulating - Labs and Vital Signs reviewed o2 sat 90% on RA Assessment: - CMS intact - Prevena dressing intact Plan: - Discharge home once cleared by Physical Therapy - Nursing to provide and educated patient on changing dressing to a [place]lon dressing on postop day 7 or if Pervena losses suction before postop day 7
--- NOTE | 2018-11-30 12:39 | PDOC(PROG) ---
Date of Service: 11/30/18 Time of Service: 10:00 Interval History: No chest pain, shortness breath, nausea or vomiting. Objective : Data - Labs CBC and BMP: 11/30/18 04:50 11/30/18 04:50 Objective : Exam - General General Appearance: No Acute Distress, Cooperative Additional General Exam Details: Vital Signs - Last Taken Temperature 97.5 F 11/30/18 07:08 Pulse Rate 82 11/30/18 07:08 Respiratory Rate 18 11/30/18 07:13 Blood Pressure 108/69 11/30/18 07:08 Pulse Ox 91 11/30/18 07:08 - Eye Eye Exam: No Scleral Icterus - ENT ENT Exam: Mucous Membranes Moist - Respiratory Respiratory Exam: Clear to Auscultation - Bilaterally, Breathing Non Labored - Cardiovascular Cardiovascular Exam: RRR, No Murmur, No Clicks, No Gallops, No Rubs, No JVD - Extremities Extremities Exam: No Clubbing Present, No Edema Present, No Cyanosis Present Additional Extremities Exam Details: Incision is dressed, dressing clean, dry, intact. Assessment and Plan - Patient Problems (1) HTN (hypertension), benign Current Visit: Yes Status: Chronic Code(s): I10 - Essential (primary) hypertension (2) GERD (gastroesophageal reflux disease) Current Visit: Yes Status: Acute Onset Date: 11/24/11 Code(s): K21.9 - Gastro-esophageal reflux disease without esophagitis Qualifiers: Esophagitis presence: esophagitis presence not specified Qualified Code(s): K21.9 - Gastro-esophageal reflux disease without esophagitis (3) Hypothyroidism, unspecified Current Visit: Yes Status: Chronic Onset Date: 11/24/11 Code(s): E03.9 - Hypothyroidism, unspecified Qualifiers: Hypothyroidism type: unspecified Qualified Code(s): E03.9 - Hypothyroidism, unspecified (4) Morbid obesity Current Visit: Yes Status: Acute Code(s): E66.01 - Morbid (severe) obesity due to excess calories (5) Status post left knee replacement Current Visit: Yes Status: Acute Code(s): Z96.652 - Presence of left artificial knee joint - Assessment / Plan Additional Assessment/Plan Details: Ultrasound negative for DVT. From hospitalist perspective, no acute decompensation of chronic medical conditions during hospital stay and the patient would be able to be discharged from her chronic medical condition standpoint. Thank you for consult. We'll sign off.
--- NOTE | 2018-11-30 15:20 | PT AM DAY ---
Diagnosis : Left Total Knee Arthroplasty AM - Physical Therapy S: The patient states she is doing better this morning and she feels that she will be ready to go back home after her afternoon therapy session. O: Treatment today consisted of the patient ambulating 50 feet prior to being brought down to therapy. The patient received an application of moist heat pack x20 minutes including set up to the left knee followed by a micro- massage to the left knee for edema management. The patient was instructed in therapeutic exercises consisting of 10 times each of the following: quad sets, heel slides, straight leg raises, short arc quads, hip abduction/adduction, and long arc quads. The patient then received manual therapy in the form of passive range of motion for knee flexion/extension in a seated position. Following this the patient ambulated 100 feet with contact guard assist x1 and use of walker for safety. The patient was then brought up to her room and left with call light within reach and alarm set. A: The patient is doing much better today. She was able to ambulate further distances safely and also is demonstrating improved mobility. She is still having a difficult time tolerating knee flexion past 80 degrees but overall is doing better than yesterday. P: Continue seeing patient BID during the week and one time per day over the weekend until discharge. NEGIN
--- NOTE | 2018-11-30 16:28 | PT.PROG ---
Progress Note Progress Note: S. Patient stated that she is ready to go home this afternoon. O. Patient ambulated 175 feet to the therapy gym where she had heat to the back of her knee then performed, heel slides, quads sets, ankle pumps, short arc quads, seated heel toe raises, sit to stands all x 10, box step ups with #2 box x 5. Patient then ambulated 150 feet to her car and performed car transfer. Patient returned home after therapy. A. Patient tolerated therapy well, she was able to perform exercises with less pain than previously, she would benefit from outpatient therapy. P. Patient has met all inpatient goals at this time.
--- NOTE | 2018-12-12 09:25 | CRNA.PROGR ---
Anesthesia Time - Procedure/Recovery Time Start Date: 12/12/18 End Date: 12/12/18 Anesthesia : Time In: 10:24 Anesthesia : Time Out: 13:39 Anesthesia : Total Time: 195 - Block Time PreOp Block : Time In: 09:40 PreOp Block : Time Out: 09:50 - Total Anesthesia Time Total Anesthesia Time (minutes): 195 - Other Weight: 1.356 kg Height: 5 ft 7 in Body Mass Index (BMI): 0.4 Physical Status: P2 Anesthesia Type: General Anesthesia : LMA PostOp Pain Management: Femoral (Single Injection) (Adductor Canal Block for post op analgesia)
--- NOTE | 2018-12-12 09:27 | CRNA.PROGR ---
Anesthesia Recovery Phase I - Post Anesthesia Evaluation Patient's Condition on Arrival in Phase I: Stable Pain Level: 0
--- NOTE | 2018-12-12 09:29 | CRNA.PROGR ---
Anesthesia Note - Progress Notes Anesthesia Progress Note: She is sitting up in the chair at the time of visit. Discussed her anesthetic course and any questions or concerns she may have regarding her anesthetic care. She has no questions at this time. CBC and BMP 11/30/18 04:50 11/30/18 04:50
== END 2018-11-30 14:08 | disposition home or self-care (01) | DRG 470 ==
LOC: OPS 07:53 → MED/SURG 14:32
PROVIDERS: ADMIT Orthopaedic Surgery; ATTEND Orthopaedic Surgery